=== PATIENT | male | born 1990 | race Caucasian/White ===

== ENCOUNTER 2021-09-07 03:19 | Emergency (ER) | payer OTHER, SELFPAY ==
[2021-09-07] MEDS ORDERED: Fluorescein Opthalmic Strip ONE (03:33)
[2021-09-07] MEDS ORDERED: Tetracaine 0.5% PF 4 ML BOT ONE (03:33)
== END 2021-09-07 04:11 | disposition home or self-care (01) ==
LOC: MADERS 03:19
DX: H16.133 Photokeratitis, bilateral (principal); X32.XXXA Exposure to sunlight, initial encounter; F17.220 Nicotine dependence, chewing tobacco, uncomplicated
CPT/HCPCS: 99283